=== PATIENT | male | born 1940 | race Caucasian/White ===

== ENCOUNTER → 2019-02-01 | Outpatient (CLI) | payer OTHER ==
[~2019-02-01] VITALS: Ht 167.6 cm; Wt 75.7 kg
[~2019-02-01] MED LIST: ASPIR 8181 MG PO; CATAPRES-TTS 20.2 MG TRANSDERM; CLINDAMYCIN PHO30 GM TOP; FINASTERIDE5 MG PO; FISH OIL 1,001000 M2 PO; FLOMAX0.4 MG PO; GLYBURIDE 5 MG T5 M1 PO; HYDRALAZINE 5050 MG PO; LASIX 40 MG TAB40 M2 PO; LOPRESSOR100 M1 PO; NORVASC5 MG PO; POTASSIUM CHLO20 ME2 PO; SPIRIVA18 MCG INH; TELMISARTAN40 MG PO; TYLENOL325 M1 PO; UNICOMPLEX M TA1 TA1 PO; VITAMIN D31000 UNIT PO; VITAMINC500 PO; ZOCOR 20 MG TAB20 M1 PO
[2019-02-01 08:56] VITALS: BP 229/95
[2019-02-01 09:07] LABS: HEMATOCRIT 40.4 % (42.0-52.0); HEMOGLOBIN 13.4 gm/dL (14.0-18.0); MCH 28.5 pg (26.0-34.0); MCHC 33.2 g/dL (28.0-37.0); MCV 85.8 fL (80.0-100.0); RBC 4.71 mil/uL (4.50-6.00); RDW 14.4 % (10.5-14.5); WBC 7.2 thou/uL (4.0-11.0)
[2019-02-01 09:13] LABS: CALCIUM 9.2 mg/dL (8.5-10.1); CREATININE 1.4 mg/dL (0.7-1.3); POTASSIUM 3.6 mmol/L (3.5-5.1)
--- NOTE | 2019-02-01 12:42 | NUR ---
NTG GTT STARTED AT 5MCG AT THIS TIME. PT ON MONITOR. VSS. WILL CONTINUE TO MONITOR.
== END | disposition home or self-care (01) ==
LOC: SPEC 08:31
PROVIDERS: Nuclear Medicine Nuclear Cardiology
DX: I70.1 Atherosclerosis of renal artery (principal); I15.0 Renovascular hypertension; I73.9 Peripheral vascular disease, unspecified; I10 Essential (primary) hypertension; E11.9 Type 2 diabetes mellitus without complications; E78.00 Pure hypercholesterolemia, unspecified; Z98.41 Cataract extraction status, right eye; Z98.42 Cataract extraction status, left eye; Z87.891 Personal history of nicotine dependence; Z79.82 Long term (current) use of aspirin; Z79.899 Other long term (current) drug therapy; Z98.890 Other specified postprocedural states